=== PATIENT | male | born 2000 | race Caucasian/White ===

== ENCOUNTER 2024-04-06 15:37 | Outpatient (AMB) | payer BC, SELFPAY ==
--- NOTE | 2024-04-06 15:45 | MHC.PC.OV ---
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 Allergies amoxicillin [From Augmentin] Allergy (Unknown, Verified 04/06/24 15:47) Unknown clavulanic acid [From Augmentin] Allergy (Unknown, Verified 04/06/24 15:47) Unknown Medication List - Last Reconciled 04/06/24 by Cate Mullins MD No Known Home Meds Tobacco use date assessed: 04/06/24 Dental Screening Dental Screen Date: 04/06/24 Did you have a dental visit in the last 12 months?: Yes Did you have a dental problem in the last 6 months where you did not have access to dental care?: No Was dental information given to patient?: Patient has dentist HPI HPI Comments History of Present Illness Details The patient is a 24 year old male with a past medical history of back pain presenting to [facility]. 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 Started to experience thoracic back pain. Finished school, started working-9 hours a day. Using sit stand ergonomic chair. Went to chiro, PT, saw orthopedic surgery. Orthopedic surgery-[facility] [place]. Had xrays. Sent for MRI. Referred to pain management. Started trigger point injections, acupuncture. STD from work ~3 months. Went back to work. Still having pain. Repeated PT. Tried second chiropractor. Referred to physiatry/pain management-this was in [facility]. Placed on muscle relaxants. Slight relief with muscle relaxants. Discussed with him there was some improvement with muscle relaxants, didnt hear further. Nayana Appiah, specialty PT in [place] on one hour session. Last six weeks. She referred him to stem cell unit. He continues to have difficulty sitting or standing for long periods of time. It is hard for him to get through his days of work due to pain levels ROS see HPI PHYSICAL EXAM: GENERAL: Alert and oriented x 3. NAD EYES: EOMI. Anicteric. HENT: Moist mucous membranes. No scleral icterus. No cervical lymphadenopathy. LUNGS: Clear to auscultation bilaterally. CARDIOVASCULAR: Regular rate and rhythm. No murmur. No JVD. MSK: Mild thoracic paraspinal muscle spasm. Slight prominence of right scapula. Pain to palpation under the right scapula ABDOMEN: Soft, non-tender +bs EXTREMITIES: No edema. Non-tender. SKIN: No rashes or lesions. Warm. NEUROLOGIC: No focal neurological deficits. CN II-XII grossly intact PSYCHIATRIC: Cooperative. 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 1. Little interest or pleasure in doing things: more than half the days 2. Feeling down, depressed, or hopeless: nearly every day 3. Trouble falling or staying asleep, or sleeping too much: not at all 4. Feeling tired or having little energy: several days 5. Poor appetite or overeating: not at all 6. Feeling bad about yourself - or that you are a failure or have let yourself or your family down: not at all 7. Trouble concentrating on things, such as reading the newspaper or watching television: not at all 8. Moving or speaking so slowly that other people could have noticed. Or the opposite - being so fidgety or restless that you have been moving around a lot more than usual: not at all 9. Thoughts that you would be better off or of hurting yourself in some way: not at all Total score: 6 Depression Screening Interpretation: Positive Depression Screening Follow-up: Declines treatment Depression Screening Done: Yes 39021 - PHQ-9 Billing: Yes Source: Developed by Drs. Ambrocio Fuentes, Hetal Lang, Steve Lobato and colleagues, with an educational johanny from [employer]. Thrive Questionnaire Date Thrive assessed: 04/07/24 I am a: Patient What is your living situation today?: I have a steady place to live Within the past 12 months, did the food you bought not last and you didn't have the money to get more?: Never true Within the past 12 months, did you worry whether your food would run out before you got money to buy more?: Never true Do you have trouble paying for medicines?: No Do you have trouble getting transportation to medical appointments?: No Do you have trouble paying your heating and electricity bill?: No Do you have trouble taking care of your child, family member or friend?: No Do you have trouble with day-to-day activities such as bathing, preparing meals, shopping, managing finances, etc.?: No Are you currently unemployed and looking for a job?: No Are you interested in more education?: Yes Please select the resources that you would like help with: Education Currently or been in a relationship where the following occur: no concerns reported THRIVE Score: 0 AUDIT C Alcohol Use Questionnaire (AUDIT-C) 1. How often do you have a drink containing alcohol?: Never 3. How often do you have six or more drinks on one occasion?: Never Total Score: 0 AAVNI-7 AMB Questionnaire AVANI-7 Date AVANI - 7 assessed: 04/07/24 Feeling nervous, anxious, or on edge: 1 = Several days Not being able to stop or control worryin = Several days Worrying too much about different things: 1 = Several days Trouble relaxin = Several days Being so restless that it is hard to sit still: 0 = Not at all Becoming easily annoyed or irritable: 1 = Several days Feeling afraid as if something awful might happen: 0 = Not at all Total AVANI-7 score (0-4 normal; 5-9 mild; 10-14 moderate; 15-21 severe): 5 Source: Developed by Drs. Ambrocio Fuentes, Hetal Lang, Steve Lobato and colleagues, with an educational johanny from [employer]. AVANI-7 Assessment Billing AVANI-7 Assessment Tool: AVANI-7 Assessment 33922 Physical exam (Primary Care) Vital Signs: Last Vital Signs Temp 97.4 F 04/06/24 15:50 Pulse 81 04/06/24 15:50 Resp 16 04/06/24 15:50 BP 122/84 04/06/24 15:50 Pulse Ox 97 04/06/24 15:50 Oxygen Delivery Method Room Air 04/06/24 15:50 BMI result Body Mass Index 26.4 Tobacco/Smoking Status: Tobacco use Status Tobacco use date assessed 04/06/24 04/06/24 15:53 Patient Tobacco Use Status Never used Tobacco 04/06/24 15:53 e-Cigarette/Vaping Use Never Used 04/06/24 15:53 PHQ-9: PHQ-9 Score PHQ-9: Total score 6 04/07/24 15:50 Depression Screening Interpretation: Positive Depression Screening Follow-up: Declines treatment Thrive Assessment: Date of Thrive Assessment Date Thrive assessed 04/07/24 04/07/24 15:50 Currently or been in a relationship where the following occur: no concerns reported Assessment and Plan Assessment & Plan (1) Encounter to establish care: Comment: 24 y/o to establish care. past medical, surgical, social and family history reviewed. Chronic thoracic back pain. Will have him see physiatry, perhaps EMG. Labs ordered. Code(s): Z76.89 - Persons encountering health services in other specified circumstances (2) Chronic right-sided thoracic back pain: Code(s): M54.6 - Pain in thoracic spine; G89.29 - Other chronic pain (3) Lumbar pain: Code(s): M54.50 - Low back pain, unspecified Orders: Orders Complete Blood Count Auto Diff 04/07/24 G89.29 - Other chronic pain, M54.50 - Low back pain, unspecified, M54.6 - Pain in thoracic spine Erythrocyte Sedimentation Rate 04/07/24 G89.29 - Other chronic pain, M54.50 - Low back pain, unspecified, M54.6 - Pain in thoracic spine Babesia IgG/IgM 04/07/24 G89.29 - Other chronic pain, M54.50 - Low back pain, unspecified, M54.6 - Pain in thoracic spine CRP High Sensitivity 04/07/24 G89.29 - Other chronic pain, M54.50 - Low back pain, unspecified, M54.6 - Pain in thoracic spine MR thoracic spine wo con 04/06/24 G89.29 - Other chronic pain, M54.50 - Low back pain, unspecified, M54.6 - Pain in thoracic spine Comprehensive Met. Panel 04/07/24 G89.29 - Other chronic pain, M54.50 - Low back pain, unspecified, M54.6 - Pain in thoracic spine Lyme IgG/IgM w/reflex to WB 04/07/24 G89. - Other chronic pain, M54.50 - Low back pain, unspecified, M54.6 - Pain in thoracic spine Ehrlichia Anaplasma Ab Panel 04/07/24. - Other chronic pain, M54.50 - Low back pain, unspecified, M54.6 - Pain in thoracic spine Rheumatoid Factor 04/07/2489. - Other chronic pain, M54.50 - Low back pain, unspecified, M54.6 - Pain in thoracic spine Referrals Physiatry Referral G. - Other chronic pain, M54.50 - Low back pain, unspecified, M54.6 - Pain in thoracic spine Coding Level of Care Code New Pt Level 5 (28503) Diagnoses Encounter to establish care Z76.89 Chronic right-sided thoracic back pain M54.6; G. Lumbar pain M54.50 Additional Codes AVANI-7 Assessment Billing - AVANI-7 Assessment Tool: AVANI-7 Assessment 04662 ([id number]) Time Spent (min) 65
[2024-04-06 15:50] VITALS: BP 122/84; PULSE 81; RESP 16; TEMP 36.3; O2SAT 97; BMI 26.4
== END 2024-04-06 16:42 | disposition home or self-care (01) ==
PROVIDERS: Visit Provider Internal Medicine
DX: M54.6 Pain in thoracic spine (principal); Z76.89 Persons encountering health services in other specified circumstances; G89.29 Other chronic pain; M54.50 Low back pain, unspecified
CPT/HCPCS: 99205

== ENCOUNTER 2024-04-07 08:20 | Outpatient (REF) | payer BC, SELFPAY ==
[2024-04-07 11:32] LABS: MANUAL DIFF FLAG NO
[2024-04-07 11:42] LABS: Basophils Absolute Auto 0.1 X10*3/uL (0.0-0.2); Eosinophils Absolute Auto 0.2 X10*3/uL (0.0-0.4); Eosinophils Percent Auto 3.4 % (0-4); Hematocrit 46.3 % (42.0-52.0); Imm Gran Abs Auto 0.02 X10*3/uL (0.00-0.03); Imm Gran Pct Auto 0.3 % (0.0-0.4); Lymphocytes Absolute Auto 2.8 X10*3/uL (1.2-4.9); Mean Corpuscular HGB Conc 34.6 g/dl (31.0-36.0); Mean Corpuscular Hemoglobin 30.9 pg (27.0-33.0); Mean Corpuscular Volume 89.6 fL (80.0-98.0); Mean Platelet Volume 10.5 fL (9.4-12.4); Monocytes Absolute Auto 0.5 X10*3/uL (0.1-1.2); Monocytes Percent Auto 7.4 % (2-11); Neutrophils Absolute Auto 2.7 x10*3/uL (2.0-8.3); Neutrophils Percent Auto 42.9 % (45-73); Platelet Count 199 X10*3/uL (160-400); Red Blood Count 5.17 X10*6/uL (4.60-5.80); Red Cell Distribution Width 12.8 % (11.0-16.0); White Blood Count 6.2 X10*3/uL (4.8-10.8)
[2024-04-07 12:07] LABS: Alanine Aminotransferase 17 U/L (0-40); Albumin Level 4.9 g/dL (3.5-5.0); Alkaline Phosphatase 75 U/L (39-117); Anion Gap 12 (12-20); Aspartate Amino Transferase 18 U/L (5-37); Bilirubin Total 0.6 mg/dL (0.0-1.0); Blood Urea Nitrogen 12 mg/dL (9-16); Calcium 10.2 mg/dL (8.4-10.2); Carbon Dioxide 26 mmol/L (22-29); Chloride 105 mmol/L (96-108); Estimated Glomerular Filt Rate > 60; Glucose Random 118 mg/dL (60-115); Potassium 3.7 mmol/L (3.3-5.1); Sodium 139 mmol/L (135-145); Total Protein 7.7 g/dL (6.5-8.0)
[2024-04-07 12:11] LABS: Rheumatoid Factor < 13.0 IU/mL (<15.0)
[2024-04-07 12:39] LABS: Erythrocyte Sedimentation Rate 1 MM/HR (0-15)
[2024-04-09 00:48] LABS: CRP High Sensitivity 0.3 mg/L
[2024-04-09 03:13] LABS: Lyme Blot 1.49 index
[2024-04-09 10:37] LABS: Lyme Abs Screen POSITIVE
[2024-04-12 15:38] LABS: 18 KD (IgG) Band REACTIVE; 23 KD (IgG) Band REACTIVE; 23 KD (IgM) Band REACTIVE; 28 KD (IgG) Band NON-REACTIVE; 30 KD (IgG) Band NON-REACTIVE; 39 KD (IgM) Band NON-REACTIVE; 39KD (IgG) Band REACTIVE; 41 KD (IgM) Band NON-REACTIVE; 41KD (IgG) Band REACTIVE; 45 KD (IgG) Band NON-REACTIVE; 58 KD (IgG) Band NON-REACTIVE; 66 KD (IgG) Band NON-REACTIVE; 93 KD (IgG) Band NON-REACTIVE; Lyme IgG Blot Interp NEGATIVE (NEGATIVE); Lyme IgM Blot Interp NEGATIVE (NEGATIVE)
[2024-04-18 12:12] LABS: A. Phagocytophilum Ab IgG <1:64 (<1:64); A. Phagocytophilum Ab IgM <1:20 (<1:20); E. Chaffeensis Ab IgG <1:64 (<1:64); E. Chaffeensis Ab IgM <1:20 (<1:20)
[2024-04-18 12:49] LABS: Babesia IgG <1:64 titer (<1:64); Babesia IgM <1:20 titer (<1:20)
== END 2024-04-07 08:21 | disposition home or self-care (01) ==
LOC: HO.WFDLDS 08:20
PROVIDERS: Visit Provider Internal Medicine
DX: M54.50 Low back pain, unspecified (principal); M54.6 Pain in thoracic spine; G89.29 Other chronic pain
CPT/HCPCS: 36415; 80053; 85025; 85652; 86141; 86431; 86617; 86618; 86666; 86753

== ENCOUNTER 2024-05-13 10:14 | Outpatient (REF) | payer BC, SELFPAY ==
--- NOTE | ~2024-05-13 | XR_ITS ---
EXAMINATION: XR THORACOLUMBAR SPINE CLINICAL INFORMATION: Dorsalgia COMPARISON: None available. TECHNIQUE: 3 views of thoracic spine FINDINGS: The vertebral alignment is normal. No intrinsic bony abnormality. The disc heights and neural foramina are well maintained. The endplates and posterior elements are normal. No fracture or subluxation. The surrounding prevertebral soft tissues are unremarkable. XR/XR thoracic spine 2V IMPRESSION: No compression fractures or subluxations are identified. The disc spaces are preserved. No endplate changes are seen. The prevertebral soft tissues are normal. The foramina are patent.
--- NOTE | ~2024-05-13 | XR_ITS ---
EXAMINATION: XR CERVICAL SPINE CLINICAL INFORMATION: Cervicalgia COMPARISON: None TECHNIQUE: 3 views of the cervical spine were obtained. FINDINGS: There are no prevertebral soft tissue or bony abnormalities demonstrated. No compression fractures or subluxations are identified. Alignment is maintained at the atlanto-axial articulation. The disc spaces are preserved except of narrowing cough C7-T1 intervertebral disc space. No endplate changes are seen. The prevertebral soft tissues are normal. The foramina are patent. XR/XR cervical spine 3V IMPRESSION: Degenerative changes at the level of C7-T1
== END 2024-05-13 10:15 | disposition home or self-care (01) ==
LOC: HO.HOSX 10:14
PROVIDERS: Visit Provider Physical Medicine & Rehabilitation
DX: M54.2 Cervicalgia (principal); M79.18 Myalgia, other site; M54.6 Pain in thoracic spine; G89.29 Other chronic pain
CPT/HCPCS: 72040; 72070

== ENCOUNTER 2024-05-13 10:14 | Outpatient (AMB) | payer BC, SELFPAY ==
--- NOTE | 2024-05-13 10:19 | MHC.OFFVIS ---
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 His pain originally started by long periods of sitting. His upper back pain is not radiating to the lower back. In the morning he feels significant stiffness, and the pain is explained as soreness. These symptoms are exacerbated with desk work and driving. Denies numbness and tingling. He has subtle muscles spasms. He has been treated for Lyme disease, has taken Doxycycline for this that has been finished for about 1 week. He will be getting an MRI of the spine booked here at [facility]. he has tried Chiropractics, Trigger point injections of the right upper back, acupuncture. 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 He has tried and failed Ibuprofen 800mg. He has tried muscle relaxers which were only mildly helpful. 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 Started to experience thoracic back pain. Finished school, started working-9 hours a day. Using sit stand ergonomic chair. Went to chiro, PT, saw orthopedic surgery. Orthopedic surgery-[facility] [place]. Had xrays. Sent for MRI. Referred to pain management. Started trigger point injections, acupuncture. STD from work ~3 months. Went back to work. Still having pain. Repeated PT. Tried second chiropractor. Referred to physiatry/pain management-this was in [facility]. Placed on muscle relaxants. Slight relief with muscle relaxants. Discussed with him there was some improvement with muscle relaxants, didnt hear further. Nayana Appiah, specialty PT in [place] on one hour session. Last six weeks. She referred him to stem cell unit. He continues to have difficulty sitting or standing for long periods of time. It is hard for him to get through his days of work due to pain levels. He confirms that he had MRI thoracic spine, 2022. He brings CD. He is scheduled end of April here for TS MRI as well, in [facility]. Trigger point injections upper back right side - zero relief. But only done once back then 2022. PT at [place] - not helping. He exercises - cardio, PT routines, up to 15 lbs upper body. Points to right rhomboids primariy, right worse then left. Does not radiate to arms. No numbness or weakness on legs. Posterior neck soreness and tension, especially with laying down and posture. No associated headache. Then points to SI joint area as being irritated just recently from PT exercises he's been doing. Played soccer and skate boarding. Has had injuries with skating in the past. He actually was feeling his best from to college with being physically fit; but once in college, became more sedentary, that he started having the pain. History of chika schlatter. Non smoker. On STD. 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 Sitting for total 4 1/2 hours, in a 9 hour day. Labs ordered by PCP. Positive Lyme, treated with antibiotics. ESR and RF normal. Not anemic. 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 Patient was appropriately conversant and oriented. Good historian. MSK: Inspection reveals appropriate head and neck positioning. No pain with palpation over the neck musculature. No tenderness over thoracic area. Some tightness and tenderness noted on right upper trapezius and right rhomboids. No scapular winging. Cervical ROM was full. Spurling's sign negative. Bilateral shoulder, elbow and wrist ROM WNL. No ligamentous laxity or crepitance. No increased effusion. Negative Tompkins sign, empty can sign are speed's test. No specific abnormalities or instability found on inspection and palpation of the spine and extremities. Strength is 5/5 in all muscle groups tested. No increased tone noted. Neurological: Neurologic examination of the upper and lower extremities was nonfocal with intact sensation, muscle stretch reflexes and without focal motor deficits . Madrigal?s negative bilaterally. Babinski was down going bilaterally. Clonus was negative. Gait is non-antalgic without loss of balance. Results Reviewed Results Reviewed: I independently reviewed the results of the following: CDs of MRI would be uploaded. I reviewed records from the following: Reviewed notes from PCP Assessment & Plan Assessment & Plan (1) Upper back pain: Code(s): M54.9 - Dorsalgia, unspecified (2) Myofascial pain: Code(s): M79.18 - Myalgia, other site Category: Medical (3) Chronic right-sided thoracic back pain: Code(s): M54.6 - Pain in thoracic spine; G89.29 - Other chronic pain Category: Medical Plan Chronic right-sided upper back pain that really is exacerbated with posture in sitting. Suggestive that this is myofascial. No signs or symptoms of radiculopathy or myelopathy. Since he has gone through different specialties and treatments without much relief yet, I would like to take some time to evaluate the workup before formulating further treatment plan. He is already scheduled for thoracic MRI at end of April here at [facility]. We will request that the CDs he brought in be uploaded to our system so we may compare. Checking cervical and thoracic plain x-rays today. He requested that I fill up a form for short-term disability. It would most likely say that we are waiting for further workup. Assessment and plan discussed with patient, and patient was agreeable. All questions were answered thoroughly. Follow up after MRI. Dina Tse MD, POONAM Board Certified, [place] Board [employer] Physical Medicine and Rehabilitation (ABPMR) Board Certified, [place] Board of Electrodiagnostic Medicine (ABEM) Orders: Orders XR thoracic spine 2V Today M54.9 - Dorsalgia, unspecified XR cervical spine 3V Today M54.2 - Cervicalgia Coding Level of Care Code New Pt Level 4 (47614) Diagnoses Upper back pain M54.9 Myofascial pain M79.18 Chronic right-sided thoracic back pain M54.6; G89.29
== END 2024-05-13 11:13 | disposition home or self-care (01) ==
PROVIDERS: Visit Provider Physical Medicine & Rehabilitation
DX: M54.9 Dorsalgia, unspecified (principal); M79.18 Myalgia, other site; M54.6 Pain in thoracic spine; G89.29 Other chronic pain
CPT/HCPCS: 99203

== ENCOUNTER 2024-05-24 16:26 | Outpatient (REF) | payer BC, SELFPAY ==
--- NOTE | ~2024-05-24 | MR_ITS ---
MR THORACIC SPINE WITHOUT CONTRAST CLINICAL INFORMATION: Pain in the thoracic spine. COMPARISON: Thoracic spine MRI October 23, 2022. TECHNIQUE: MRI of the thoracic spine was obtained using routine sequences without contrast. FINDINGS: There are 12 rib bearing thoracic type vertebral bodies. The vertebral body heights are overall maintained. Small chronic endplate along the lower endplate of T11. There are mild Modic type I endplate signal changes at T11-T12. There is no additional bone marrow edema. There are no acute fractures. Moderate discoid loss and disc desiccation at T11-T12. The remaining disc volumes are preserved and the remaining discs remain well-hydrated. Thoracic cord morphology is normal and there are no definite thoracic cord signal changes when accounting for artifact. At T11-T12, there is a slight annular disc bulge that minimally indents the ventral thecal sac. The remaining thoracic disc contours are normal. There is no central canal stenosis within the thoracic spine. At T4-T5, advanced right-sided facet arthropathy results in moderate right-sided foraminal stenosis. No additional significant foraminal stenosis with thoracic spine. MR/MR thoracic spine wo con IMPRESSION: * At T11-T12, there is a slight annular disc bulge that minimally indents the ventral thecal sac. The remaining thoracic disc contours are normal. No significant central canal stenosis within the thoracic spine. No thoracic cord compression. * At T4-T5, advanced right-sided facet arthropathy results in moderate right-sided foraminal stenosis. * Small chronic lower endplate Schmorl's node at T11 and mild Modic type I endplate changes at T11-T12. Electronically signed by: Bhaskar Ruvalcaba MD 06/22/2024 03:01 PM EDT
== END 2024-05-24 16:27 | disposition home or self-care (01) ==
LOC: HO.MRI 16:26
PROVIDERS: PCP Internal Medicine; Visit Provider Internal Medicine
DX: M54.6 Pain in thoracic spine (principal); M54.50 Low back pain, unspecified; G89.29 Other chronic pain
CPT/HCPCS: 72146

== ENCOUNTER 2024-06-24 09:09 | Outpatient (AMB) | payer BC, SELFPAY ==
--- NOTE | 2024-06-24 09:10 | A.OFFVIS_ITS ---
Vital Signs 06/24/24 09:11 Height 6 ft 0.04 in Weight 190 lb 4 oz BMI 25.8 Intake Visit Reasons: OV-chronic low back pain-F/U Intake Note: Jn is a 24 year old male who presents to the office today for a follow up evaluation of chronic low back pain and to discuss imaging results. Patient reports no new concerns today. 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 Started to experience thoracic back pain. Finished school, started working-9 hours a day. Using sit stand ergonomic chair. Went to chiro, PT, saw orthopedic surgery. Orthopedic surgery-[facility] [place]. Had xrays. Sent for MRI. Referred to pain management. Started trigger point injections, acupuncture. STD from work ~3 months. Went back to work. Still having pain. Repeated PT. Tried second chiropractor. Referred to physiatry/pain management-this was in [facility]. Placed on muscle relaxants. Slight relief with muscle relaxants. Discussed with him there was some improvement with muscle relaxants, didnt hear further. Nayana Appiah, specialty PT in [place]-one on one hour session. Last six weeks. She referred him to stem cell unit. He continues to have difficulty sitting or standing for long periods of time. It is hard for him to get through his days of work due to pain levels. He confirms that he had MRI thoracic spine, 2022. He brings CD. He is scheduled end of April here for TS MRI as well, in [facility]. Trigger point injections upper back right side - zero relief. But only done once back then 2022. PT at [place] - not helping. He exercises - cardio, PT routines, up to 15 lbs upper body. Points to right rhomboids primariy, right worse then left. Does not radiate to arms. No numbness or weakness on legs. Posterior neck soreness and tension, especially with laying down and posture. No associated headache. Then points to SI joint area as being irritated just recently from PT exercises he's been doing. Played soccer and skate boarding. Has had injuries with skating in the past. He actually was feeling his best from to college with being physically fit; but once in college, became more sedentary, that he started having the pain. History of chika schlatter. Non smoker. On STD. 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 Sitting for to sita 4 1/2 hours, in a 9 hour day. Labs ordered by PCP. Positive Lyme, treated with antibiotics. ESR and RF normal. Not anemic. No change since last time I saw him. Indicates to areas of pain, medial rhomboids and below scapula, right side. Denies any radiation down the right arm. Denies any numbness in his fingers. 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 Patient was appropriately conversant and oriented. Good historian. Neurological: Neurologic examination of the upper and lower extremities was nonfocal with intact sensation, muscle stretch reflexes and without focal motor deficits . Madrigal?s negative bilaterally. Babinski was down going bilaterally. Clonus was negative. Gait is non-antalgic without loss of balance. Negative Spurling sign. Results Reviewed Results Reviewed: Ordering Physician: Dina Hillman Date of Service: 05/13/24 Procedure(s): XR thoracic spine 2V Accession Number(s): [id number] cc: Dina Hillman~ EXAMINATION: XR THORACOLUMBAR SPINE CLINICAL INFORMATION: Dorsalgia COMPARISON: None available. TECHNIQUE: 3 views of thoracic spine FINDINGS: The vertebral alignment is normal. No intrinsic bony abnormality. The disc heights and neural foramina are well maintained. The endplates and posterior elements are normal. No fracture or subluxation. The surrounding prevertebral soft tissues are unremarkable. XR/XR thoracic spine 2V IMPRESSION: No compression fractures or subluxations are identified. The disc spaces are preserved. No endplate changes are seen. The prevertebral soft tissues are normal. The foramina are patent. Ordering Physician: Dina Hillman Date of Service: 05/13/24 Procedure(s): XR cervical spine 3V Accession Number(s): [id number] cc: Dina Hillman~ EXAMINATION: XR CERVICAL SPINE CLINICAL INFORMATION: Cervicalgia COMPARISON: None TECHNIQUE: 3 views of the cervical spine were obtained. FINDINGS: There are no prevertebral soft tissue or bony abnormalities demonstrated. No compression fractures or subluxations are identified. Alignment is maintained at the atlanto-axial articulation. The disc spaces are preserved except of narrowing cough C7-T1 intervertebral disc space. No endplate changes are seen. The prevertebral soft tissues are normal. The foramina are patent. XR/XR cervical spine 3V IMPRESSION: Degenerative changes at the level of C7-T1 Ordering Physician: Cate Mullins MD Date of Service: 05/24/24 Procedure(s): MR thoracic spine wo con Accession Number(s): [id number] cc: Cate Mullins MD~ MR THORACIC SPINE WITHOUT CONTRAST CLINICAL INFORMATION: Pain in the thoracic spine. COMPARISON: Thoracic spine MRI October 23, 2022. TECHNIQUE: MRI of the thoracic spine was obtained using routine sequences without contrast. FINDINGS: There are 12 rib bearing thoracic type vertebral bodies. The vertebral body heights are overall maintained. Small chronic endplate along the lower endplate of T11. There are mild Modic type I endplate signal changes at T11-T12. There is no additional bone marrow edema. There are no acute fractures. Moderate discoid loss and disc desiccation at T11-T12. The remaining disc volumes are preserved and the remaining discs remain well-hydrated. Thoracic cord morphology is normal and there are no definite thoracic cord signal changes when accounting for artifact. At T11-T12, there is a slight annular disc bulge that minimally indents the ventral thecal sac. The remaining thoracic disc contours are normal. There is no central canal stenosis within the thoracic spine. At T4-T5, advanced right-sided facet arthropathy results in moderate right-sided foraminal stenosis. No additional significant foraminal stenosis with thoracic spine. MR/MR thoracic spine wo con IMPRESSION: * At T11-T12, there is a slight annular disc bulge that minimally indents the ventral thecal sac. The remaining thoracic disc contours are normal. No significant central canal stenosis within the thoracic spine. No thoracic cord compression. * At T4-T5, advanced right-sided facet arthropathy results in moderate right-sided foraminal stenosis. * Small chronic lower endplate Schmorl's node at T11 and mild Modic type I endplate changes at T11-T12. Electronically signed by: Bhaskar Ruvalcaba MD 06/22/2024 03:01 PM EDT RP Assessment & Plan Assessment & Plan (1) Upper back pain: Code(s): M54.9 - Dorsalgia, unspecified (2) Myofascial pain: Code(s): M79.18 - Myalgia, other site Category: Medical (3) Chronic right-sided thoracic back pain: Code(s): M54.6 - Pain in thoracic spine; G89.29 - Other chronic pain Category: Medical Plan Chronic right-sided upper back pain, mainly rhomboids, that I feel is myofascial, associated with poor posture. We went over thoracic MRI images which does not show any significant nerve or cord impingement to explain his symptoms. We looked at cervical x-ray which did show loss of lordosis, consistent with myofascial. It also showed decreased disc space C7-T1. I do believe that his chronic pain is myofascial in nature. That it could be corrected, with lifestyle changes, posture changes, continued exercises and stretching. However, to not miss anything, we will obtain cervical MRI to investigate if there is any right-sided C7-T1 foraminal stenosis or disc herniation. Lower suspicion for this but we do not want to miss anything. Discussed option of continued PT and trigger point injections versus referral to pain management for further intervention. At such a young age, I am concerned of starting him on a series of interventions that will not help correct the bottom line which is myofascial and postural. Patient verbalizes understanding and agreement. Continue home exercises for now. He can use [id number] Voltaren gel. Discussed side instructions. Advised use of shoulder posture correction brace. Assessment and plan discussed with patient, and patient was agreeable. All questions were answered thoroughly. Follow up after MRI. Dina Tse MD, POONAM Board Certified, [place] Board [employer] Physical Medicine and Rehabilitation (ABPMR) Board Certified, [place] Board of Electrodiagnostic Medicine (ABEM) Orders: Orders MR cervical spine wo con Today M54.12 - Radiculopathy, cervical region Coding Level of Care Code Est Pt Level 4 (03691) Diagnoses Upper back pain M54.9 Myofascial pain M79.18 Chronic right-sided thoracic back pain M54.6; G89.29
[2024-06-24 09:11] VITALS: BMI 25.8
== END 2024-06-24 09:47 | disposition home or self-care (01) ==
PROVIDERS: PCP Internal Medicine; Visit Provider Physical Medicine & Rehabilitation
DX: M54.9 Dorsalgia, unspecified (principal); M79.18 Myalgia, other site; M54.6 Pain in thoracic spine; G89.29 Other chronic pain
CPT/HCPCS: 99213

== ENCOUNTER → 2024-06-24 09:09 | Outpatient (BNVA) | payer BC, SELFPAY | PROVIDERS: PCP Internal Medicine; Visit Provider Physical Medicine & Rehabilitation ==

== ENCOUNTER 2024-07-24 19:27 | Outpatient (REF) | payer BC, SELFPAY ==
--- NOTE | ~2024-07-24 | MR_ITS ---
EXAMINATION: MR CERVICAL SPINE WITHOUT CONTRAST CLINICAL INFORMATION: Cervical radiculopathy, right-sided C7-T1 disc herniation COMPARISON: MRI cervical spine on 10/15/2022 at [facility], cervical spine x-ray on 05/13/2024. TECHNIQUE: MRI of the cervical spine was obtained using routine sequences without contrast. FINDINGS: The visualized cervical vertebrae are intact with normal alignment. No focal bone lesion with abnormal signal can be seen. Evaluation of the intervertebral discs show: C2/C3: Intervertebral disc height is normal, with normal T2 signal. No focal disc herniation is seen. Bilateral C2-C3 neural foramina are patent. Bilateral apophyseal joints are intact with normal alignment. C3/C4: Intervertebral disc height is normal, with normal T2 signal. No focal disc herniation is seen. Bilateral C3-C4 neural foramina are patent. Bilateral apophyseal joints are intact with normal alignment. C4/C5: Intervertebral disc height is normal, with normal T2 signal. No focal disc herniation is seen. Bilateral C4-C5 neural foramina are patent. Bilateral apophyseal joints are intact with normal alignment. C5/C6: Intervertebral disc height is normal, with normal T2 signal. No focal disc herniation is seen. Bilateral C5-C6 neural foramina are patent. Bilateral apophyseal joints are intact with normal alignment. C6/C7: Intervertebral disc height is normal, with normal T2 signal. No focal disc herniation is seen. Bilateral C6-C7 neural foramina are patent. Bilateral apophyseal joints are intact with normal alignment. C7/T1: Intervertebral disc height is normal, with normal T2 signal. No focal disc herniation is seen. Bilateral C7-T1 neural foramina are patent. Bilateral apophyseal joints are intact with normal alignment. Cervical spinal cord is normal in position and signal. MR/MR cervical spine wo con IMPRESSION: 1. Normal MRI scan of the cervical spine. No focal cervical disc herniation, spinal stenosis, spinal cord or nerve root compression can be seen. 2. No evidence of C7-T1 disc herniation, no interval change since previous MRI. Electronically signed by: Milind Hyde MD 08/25/2024 02:18 PM EDT
== END 2024-07-24 19:28 | disposition home or self-care (01) ==
LOC: HO.MRI 19:27
PROVIDERS: PCP Internal Medicine; Visit Provider Physical Medicine & Rehabilitation
DX: M54.12 Radiculopathy, cervical region (principal)
CPT/HCPCS: 72141

== ENCOUNTER 2024-08-27 11:41 | Outpatient (AMB) | payer BC, SELFPAY ==
--- NOTE | 2024-08-27 11:46 | A.OFFVIS_ITS ---
Vital Signs 08/27/24 11:48 Height 6 ft 2 in Weight 190 lb BMI 24.4 Intake Visit Reasons: OV- Cervical Spine MRI Follow Up Intake Note: Jn is a 24 yo male who presents today to discuss his cervical spine MRI results. Patient reports no updates to his health at this time. 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 Started to experience thoracic back pain. Finished school, started working-9 hours a day. Using sit stand ergonomic chair. Went to chiro, PT, saw orthopedic surgery. Orthopedic surgery-Sports Medicine [place]. Had xrays. Sent for MRI. Referred to pain management. Started trigger point injections, acupuncture. STD from work ~3 months. Went back to work. Still having pain. Repeated PT. Tried second chiropractor. Referred to physiatry/pain management-this was in [facility]. Placed on muscle relaxants. Slight relief with muscle relaxants. Discussed with him there was some improvement with muscle relaxants, didnt hear further. Nayana Appiah, specialty PT in [place]-one on one hour session. Last six weeks. She referred him to stem cell unit. He continues to have difficulty sitting or standing for long periods of time. It is hard for him to get through his days of work due to pain levels. He confirms that he had MRI thoracic spine, 2022. He brings CD. He is scheduled end of April here for TS MRI as well, in [facility]. Trigger point injections upper back right side - zero relief. But only done once back then 2022. PT at [place] - not helping. He exercises - cardio, PT routines, up to 15 lbs upper body. Points to right rhomboids primariy, right worse then left. Does not radiate to arms. No numbness or weakness on legs. Posterior neck soreness and tension, especially with laying down and posture. No associated headache. Then points to SI joint area as being irritated just recently from PT exercises he's been doing. Played soccer and skate boarding. Has had injuries with skating in the past. He actually was feeling his best from HS to college with being physically fit; but once in college, became more sedentary, that he started having the pain. History of chika schlatter. Non smoker. On STD. 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 Sitting for total 4 1/2 hours, in a 9 hour day. Labs ordered by PCP. Positive Lyme, treated with antibiotics. ESR and RF normal. Not anemic. Feels that he is gaining some strength from PT. Works out. Still having pain on rhomboids bilateral. Had a flare from lower back pain. Goal of his exercise program that slow progressive and not exacerbate. 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 Patient was appropriately conversant and oriented. Good historian. MSK: Cervical ROM within normal. Negative Spurling sign. Negative hawkin sign bilateral. Neurological: Neurologic examination of the upper and lower extremities was nonfocal with intact sensation, muscle stretch reflexes and without focal motor deficits . Madrigal?s negative bilaterally. Clonus was negative. Gait is non-antalgic without loss of balance. Results Reviewed Results Reviewed: Ordering Physician: Dina Hillman Date of Service: 07/24/24 Procedure(s): MR cervical spine wo con Accession Number(s): [id number] cc: Cate Mullins MD; Dina Hillman~ EXAMINATION: MR CERVICAL SPINE WITHOUT CONTRAST CLINICAL INFORMATION: Cervical radiculopathy, right-sided C7-T1 disc herniation COMPARISON: MRI cervical spine on 10/15/2022 at [facility], cervical spine x-ray on 05/13/2024. TECHNIQUE: MRI of the cervical spine was obtained using routine sequences without contrast. FINDINGS: The visualized cervical vertebrae are intact with normal alignment. No focal bone lesion with abnormal signal can be seen. Evaluation of the intervertebral discs show: C2/C3: Intervertebral disc height is normal, with normal T2 signal. No focal disc herniation is seen. Bilateral C2-C3 neural foramina are patent. Bilateral apophyseal joints are intact with normal alignment. C3/C4: Intervertebral disc height is normal, with normal T2 signal. No focal disc herniation is seen. Bilateral C3-C4 neural foramina are patent. Bilateral apophyseal joints are intact with normal alignment. C4/C5: Intervertebral disc height is normal, with normal T2 signal. No focal disc herniation is seen. Bilateral C4-C5 neural foramina are patent. Bilateral apophyseal joints are intact with normal alignment. C5/C6: Intervertebral disc height is normal, with normal T2 signal. No focal disc herniation is seen. Bilateral C5-C6 neural foramina are patent. Bilateral apophyseal joints are intact with normal alignment. C6/C7: Intervertebral disc height is normal, with normal T2 signal. No focal disc herniation is seen. Bilateral C6-C7 neural foramina are patent. Bilateral apophyseal joints are intact with normal alignment. C7/T1: Intervertebral disc height is normal, with normal T2 signal. No focal disc herniation is seen. Bilateral C7-T1 neural foramina are patent. Bilateral apophyseal joints are intact with normal alignment. Cervical spinal cord is normal in position and signal. MR/MR cervical spine wo con IMPRESSION: 1. Normal MRI scan of the cervical spine. No focal cervical disc herniation, spinal stenosis, spinal cord or nerve root compression can be seen. 2. No evidence of C7-T1 disc herniation, no interval change since previous MRI. Assessment & Plan Assessment & Plan (1) Upper back pain: Code(s): M54.9 - Dorsalgia, unspecified (2) Myofascial pain: Code(s): M79.18 - Myalgia, other site Category: Medical (3) Chronic right-sided thoracic back pain: Code(s): M54.6 - Pain in thoracic spine; G89.29 - Other chronic pain Category: Medical Plan Chronic right-sided upper back pain, mainly rhomboids, that I feel is my ofascial, associated with poor posture. Thoracic MRI images does not show any significant nerve or cord impingement to explain his symptoms. Cervical x-ray did show loss of lordosis, consistent with myofascial. It also showed decreased disc space C7-T1. So we obtained Cervical MRI, which was read as essentially normal. No disc herniation or spinal stenosis. We looked at the images together today and confirmed. Again, chronic pain is myofascial in nature. He is making great strides in terms of guided PT and exercises. Slow progression with just minimal weights. Advised importance of stretching and posture. Objectively the MRI thoracic or cervical do not show indication for intervention/injection/surgery. 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 He is concerned about prolonged sitting because he still gets pain when he sits more than 30 minutes at a time. Assessment and plan discussed with patient, and patient was agreeable. All questions were answered thoroughly. Follow up after MRI. Dina Tse MD, POONAM Board Certified, [place] Board of Physical Medicine and Rehabilitation (ABPMR) Board Certified, [place] Board of Electrodiagnostic Medicine (ABEM) Coding Level of Care Code Est Pt Level 4 (44726) Diagnoses Upper back pain M54.9 Myofascial pain M79.18 Chronic right-sided thoracic back pain M54.6; G89.29
[2024-08-27 11:48] VITALS: BMI 24.4
== END 2024-08-27 12:09 | disposition home or self-care (01) ==
LOC: HO.HOS 11:41
PROVIDERS: PCP Internal Medicine; Visit Provider Physical Medicine & Rehabilitation
DX: M54.9 Dorsalgia, unspecified (principal); M79.18 Myalgia, other site; M54.6 Pain in thoracic spine; G89.29 Other chronic pain
CPT/HCPCS: 99214

== ENCOUNTER → 2024-08-27 11:41 | Outpatient (BNVA) | payer BC, SELFPAY | PROVIDERS: PCP Internal Medicine; Visit Provider Physical Medicine & Rehabilitation ==

== ENCOUNTER 2024-09-17 10:33 | Outpatient (AMB) | payer BC, SELFPAY ==
--- NOTE | 2024-09-17 10:41 | A.OFFPC_ITS ---
Vital Signs 09/17/24 10:47 Height 6 ft 2 in Weight 197 lb BMI 25.3 BP 110/66 Blood Pressure Location Rt brachial Position Sitting Pulse 107 H Pulse Source Pulse Oximeter Pulse Oximetry (%) 98 Oxygen Delivery Method Room Air Intake Visit Reasons: PE Allergies amoxicillin [From Augmentin] Allergy (Unknown, Verified 08/27/24 11:49) Unknown clavulanic acid [From Augmentin] Allergy (Unknown, Verified 08/27/24 11:49) Unknown Tobacco use date assessed: 09/17/24 Dental Screening Dental Screen Date: 04/06/24 HPI HPI Comments History of Present Illness Details The patient is a 24 year old male with a past medical history of back pain presenting for physical exam Chronic pain: Saw physiatry. Had thoracic and cervical MRI. Myofascial. upcomoing stem cell appt. Seeing physiatry again in 3 months. Slow steady improvement with PT. 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 Started to experience thoracic back pain. Finished school, started working-9 hours a day. Using sit stand ergonomic chair. Went to chiro, PT, saw orthopedic surgery. Orthopedic surgery-[facility] [place]. Had xrays. Sent for MRI. Referred to pain management. Started trigger point injections, acupuncture. STD from work ~3 months. Went back to work. Still having pain. Repeated PT. Tried second chiropractor. Referred to physiatry/pain management-this was in [facility]. Placed on muscle relaxants. Slight relief with muscle relaxants. Discussed with him there was some improvement with muscle relaxants, didnt hear further. Nayana Appiah, specialty PT in [facility] on one hour session. Last six weeks. She referred him to stem cell unit. He continues to have difficulty sitting or standing for long periods of time. It is hard for him to get through his days of work due to pain levels. Stem cell appointment ROS see HPI PHYSICAL EXAM: GENERAL: Alert and oriented x 3. NAD EYES: EOMI. Anicteric. HENT: Moist mucous membranes. No scleral icterus. No cervical lymphadenopathy. LUNGS: Clear to auscultation bilaterally. CARDIOVASCULAR: Regular rate and rhythm. No murmur. No JVD. ABDOMEN: Soft, non-tender +bs : Normal penis and testes EXTREMITIES: No edema. Non-tender. SKIN: No rashes or lesions. Warm. NEUROLOGIC: No focal neurological deficits. CN II-XII grossly intact PSYCHIATRIC: Cooperative. 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 1. Little interest or pleasure in doing things: nearly every day 2. Feeling down, depressed, or hopeless: nearly every day 3. Trouble falling or staying asleep, or sleeping too much: several days 4. Feeling tired or having little energy: not at all 5. Poor appetite or overeating: not at all 6. Feeling bad about yourself - or that you are a failure or have let yourself or your family down: not at all 7. Trouble concentrating on things, such as reading the newspaper or watching television: nearly every day 8. Moving or speaking so slowly that other people could have noticed. Or the opposite - being so fidgety or restless that you have been moving around a lot more than usual: not at all 9. Thoughts that you would be better off or of hurting yourself in some way: not at all Total score: 10 Depression Screening Interpretation: Positive Depression Screening Follow-up: New Medication prescribed Depression Screening Done: Yes 59312 - PHQ-9 Billing: Yes Source: Developed by Drs. Ambrocio Fuentes, Hetal Lang, Steve Lobato and colleagues, with an educational johanny from [employer]. Thrive Questionnaire Date Thrive assessed: 09/14/24 I am a: Patient What is your living situation today?: I have a steady place to live Within the past 12 months, did the food you bought not last and you didn't have the money to get more?: Never true Within the past 12 months, did you worry whether your food would run out before you got money to buy more?: Never true Do you have trouble paying for medicines?: No Do you have trouble getting transportation to medical appointments?: No Do you have trouble paying your heating and electricity bill?: No Do you have trouble taking care of your child, family member or friend?: No Do you have trouble with day-to-day activities such as bathing, preparing meals, shopping, managing finances, etc.?: No Are you currently unemployed and looking for a job?: No Are you interested in more education?: No Please select the resources that you would like help with: None Currently or been in a relationship where the following occur: No concerns reported THRIVE Score: 0 AUDIT C Alcohol Use Questionnaire (AUDIT-C) 1. How often do you have a drink containing alcohol?: Never 3. How often do you have six or more drinks on one occasion?: Never Total Score: 0 AVANI-7 AMB Questionnaire AVANI-7 Date AVANI - 7 assessed: 04/07/24 Feeling nervous, anxious, or on edge: 1 = Several days Not being able to stop or control worryin = Several days Worrying too much about different things: 1 = Several days Trouble relaxin = Several days Being so restless that it is hard to sit still: 1 = Several days Becoming easily annoyed or irritable: 1 = Several days Feeling afraid as if something awful might happen: 0 = Not at all Total AVANI-7 score (0-4 normal; 5-9 mild; 10-14 moderate; 15-21 severe): 6 Source: Developed by Drs. Ambrocio Fuentes, Hetal Lang, Steve Lobato and colleagues, with an educational johanny from [employer]. Physical exam (Primary Care) Vital Signs: Last Vital Signs Pulse 107 H 09/17/24 10:47 BP 110/66 09/17/24 10:47 Pulse Ox 98 09/17/24 10:47 Oxygen Delivery Method Room Air 09/17/24 10:47 BMI result Body Mass Index 25.3 Tobacco/Smoking Status: Tobacco use Status Tobacco use date assessed 09/17/24 09/17/24 10:47 Patient Tobacco Use Status Never used Tobacco 09/17/24 10:47 e-Cigarette/Vaping Use Never Used 09/17/24 10:47 PHQ-9: PHQ-9 Score PHQ-9: Total score 10 09/17/24 10:49 Depression Screening Interpretation: Positive Depression Screening Follow-up: New Medication prescribed Thrive Assessment: Date of Thrive Assessment Date Thrive assessed 09/14/24 09/17/24 10:47 Currently or been in a relationship where the following occur: No concerns reported Coding Level of Care Code Est Pt Prev Care 18-39y(13073) Diagnoses Physical exam Z00.00 Myofascial pain M79.18 Additional Codes PHQ-9 - 51221 - PHQ-9 Billing: Yes ([id number]) Assessment & Plan Assessment & Plan (1) Physical exam: Code(s): Z00.00 - Encounter for general adult medical examination without abnormal findings Category: Medical Plan: Preventive measures discussed Labs utd-repeat abnormals Jury letter provided (2) Myofascial pain: Code(s): M79.18 - Myalgia, other site Category: Medical Plan: Jury letter provide Trial duloxetine Baclofen PRN Orders: Orders Complete Blood Count Auto Diff Today R73.09 - Other abnormal glucose, R79.89 - Other specified abnormal findings of blood chemistry, Z13.0 - Encounter for screening for diseases of the blood and blood-forming organs and certain disorders involving the immune mechanism Pathologist Review - CBC Today R73.09 - Other abnormal glucose, R79.89 - Other specified abnormal findings of blood chemistry, Z13.0 - Encounter for screening for diseases of the blood and blood-forming organs and certain disorders involving the immune mechanism Hemoglobin A1c Today R73.09 - Other abnormal glucose, R79.89 - Other specified abnormal findings of blood chemistry, Z13.0 - Encounter for screening for diseases of the blood and blood-forming organs and certain disorders involving the immune mechanism Medications: New duloxetine then increase to 60mg cap oral daily 30 mg PO DAILY 7 caps 0RF baclofen 10 mg PO TID PRN 90 tabs 3RF muscle spasm duloxetine 60 mg PO DAILY 90 caps 3RF
[2024-09-17 10:47] VITALS: BP 110/66; PULSE 107; O2SAT 98; BMI 25.3
== END 2024-09-17 11:17 | disposition home or self-care (01) ==
PROVIDERS: PCP Internal Medicine; Visit Provider Internal Medicine
DX: Z00.00 Encounter for general adult medical examination without abnormal findings (principal); M79.18 Myalgia, other site

== ENCOUNTER → 2024-09-17 10:33 | Outpatient (BNVA) | payer BC, SELFPAY | PROVIDERS: PCP Internal Medicine; Visit Provider Internal Medicine | DX: Z00.00 Encounter for general adult medical examination without abnormal findings (principal); M79.18 Myalgia, other site | CPT/HCPCS: 96127 ==

== ENCOUNTER 2024-11-01 10:18 | Outpatient (AMB) | payer BC, SELFPAY ==
--- NOTE | 2024-11-01 10:29 | A.OFFPC_ITS ---
Vital Signs 11/01/24 10:37 Height 6 ft 2 in Weight 195 lb BMI 25.0 BP 118/78 Blood Pressure Location Lt brachial Position Sitting Pulse 95 Pulse Source Pulse Oximeter Pulse Oximetry (%) 97 Oxygen Delivery Method Room Air Intake Visit Reasons: follow up back pain Intake Note: Follow up back pain. Was having side effects from Cymbalta: anxiety, depression, dizziness. Cardroom Supervisor Required: No Allergies duloxetine [From Cymbalta] Allergy (Severe, Verified 11/01/24 10:34) Depression amoxicillin [From Augmentin] Allergy (Unknown, Verified 11/01/24 10:30) Unknown clavulanic acid [From Augmentin] Allergy (Unknown, Verified 11/01/24 10:30) Unknown Medication List - Last Reconciled 11/01/24 by Cate Mullins MD biotin 5,000 mcg sublingual .once weekly [calcium ,] Tobacco use date assessed: 09/17/24 Dental Screening Dental Screen Date: 04/06/24 HPI HPI Comments History of Present Illness Details The patient is a 24 year old male with a past medical history of back pain, lyme disease presenting for physical exam Chronic pain: Saw physiatry. Had thoracic and cervical MRI. Myofascial. Upcoming stem cell appt-Nov 08. Went to homeopathic doctor-started on biotin and calcium. Slow steady improvement with PT. 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. Started to experience thoracic back pain. Finished school, started working-9 hours a day. Using sit stand ergonomic chair. Went to chiro, PT, saw orthopedic surgery. Orthopedic surgery-[facility]. Had xrays. Sent for MRI. Referred to pain management. Started trigger point injections, acupuncture. STD from work ~3 months. Went back to work. Still having pain. Repeated PT. Tried second chiropractor. Referred to physiatry/pain management-this was in [facility]. Placed on muscle relaxants. Slight relief with muscle relaxants. Discussed with him there was some improvement with muscle relaxants, didnt hear further. Nayana Appiah, specialty PT in [place]-one on one hour session. Last six weeks. She referred him to stem cell unit. He continues to have difficulty sitting or standing for long periods of time. It is hard for him to get through his days of work due to pain levels. Getting stronger and more flexible but still having daily pain Tried duloxetine -had a bad reaction. [place] absolutely awful, couldnt function. Added to allergy list Seeing a therapist once weekly ROS see HPI PHYSICAL EXAM: GENERAL: Alert and oriented x 3. NAD EYES: EOMI. Anicteric. HENT: Moist mucous membranes. No scleral icterus. No cervical lymphadenopathy. LUNGS: Clear to auscultation bilaterally. CARDIOVASCULAR: Regular rate and rhythm. No murmur. No JVD. ABDOMEN: Soft, non-tender +bs : Normal penis and testes EXTREMITIES: No edema. Non-tender. SKIN: No rashes or lesions. Warm. NEUROLOGIC: No focal neurological deficits. CN II-XII grossly intact PSYCHIATRIC: Cooperative. 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 1. Little interest or pleasure in doing things: several days 2. Feeling down, depressed, or hopeless: several days 3. Trouble falling or staying asleep, or sleeping too much: not at all 4. Feeling tired or having little energy: several days 5. Poor appetite or overeating: not at all 6. Feeling bad about yourself - or that you are a failure or have let yourself or your family down: several days 7. Trouble concentrating on things, such as reading the newspaper or watching television: nearly every day 8. Moving or speaking so slowly that other people could have noticed. Or the opposite - being so fidgety or restless that you have been moving around a lot more than usual: not at all 9. Thoughts that you would be better off or of hurting yourself in some way: not at all Total score: 7 Depression Screening Interpretation: Positive Depression Screening Follow-up: Community Mental Health Worker F/U Depression Screening Done: Yes 49376 - PHQ-9 Billing: Yes Source: Developed by Drs. Ambrocio Fuentes, Hetal Lang, Steve Lobato and colleagues, with an educational johanny from [employer]. Thrive Questionnaire Date Thrive assessed: 10/31/24 I am a: Patient What is your living situation today?: I have a steady place to live Within the past 12 months, did the food you bought not last and you didn't have the money to get more?: Never true Within the past 12 months, did you worry whether your food would run out before you got money to buy more?: Never true Do you have trouble paying for medicines?: No Do you have trouble getting transportation to medical appointments?: No Do you have trouble paying your heating and electricity bill?: No Do you have trouble taking care of your child, family member or friend?: No Do you have trouble with day-to-day activities such as bathing, preparing meals, shopping, managing finances, etc.?: No Are you currently unemployed and looking for a job?: No Are you interested in more education?: No Please select the resources that you would like help with: None Currently or been in a relationship where the following occur: No concerns reported THRIVE Score: 0 AUDIT C Alcohol Use Questionnaire (AUDIT-C) 1. How often do you have a drink containing alcohol?: Never 3. How often do you have six or more drinks on one occasion?: Never Total Score: 0 AVANI-7 AMB Questionnaire AVANI-7 Date AVANI - 7 assessed: 04/07/24 Feeling nervous, anxious, or on edge: 1 = Several days Not being able to stop or control worryin = Several days Worrying too much about different things: 1 = Several days Trouble relaxin = Several days Being so restless that it is hard to sit still: 1 = Several days Becoming easily annoyed or irritable: 1 = Several days Feeling afraid as if something awful might happen: 0 = Not at all Total AVANI-7 score (0-4 normal; 5-9 mild; 10-14 moderate; 15-21 severe): 6 Source: Developed by Drs. Ambrocio Fuentes, Hetal Lang, Steve Lobato and colleagues, with an educational johanny from [employer]. Physical exam (Primary Care) Vital Signs: Last Vital Signs Pulse 95 11/01/24 10:37 BP 118/78 11/01/24 10:37 Pulse Ox 97 11/01/24 10:37 Oxygen Delivery Method Room Air 11/01/24 10:37 BMI result Body Mass Index 25.0 Tobacco/Smoking Status: Tobacco use Status Tobacco use date assessed 09/17/24 11/01/24 10:39 Patient Tobacco Use Status Never used Tobacco 11/01/24 10:39 e-Cigarette/Vaping Use Never Used 11/01/24 10:39 PHQ-9: PHQ-9 Score PHQ-9: Total score 7 11/01/24 10:39 Depression Screening Interpretation: Positive Depression Screening Follow-up: Community Mental Health Worker F/U Thrive Assessment: Date of Thrive Assessment Date Thrive assessed 10/31/24 11/01/24 10:39 Currently or been in a relationship where the following occur: No concerns reported Coding Level of Care Code Est Pt Level 3 (29872) Diagnoses Chronic back pain, unspecified back location, unspecified back pain laterality M54.9; G89.29 Back pain location: back pain in unspecified location Back pain laterality: unspecified Additional Codes PHQ-9 - 29868 - PHQ-9 Billing: Yes ([id number]) Assessment & Plan Assessment & Plan (1) Chronic back pain: Code(s): M54.9 - Dorsalgia, unspecified; G89.29 - Other chronic pain Category: Medical Qualifiers: Back pain location: back pain in unspecified location Back pain later ality: unspecified Qualified Code(s): M54.9 - Dorsalgia, unspecified; G89.29 - Other chronic pain Plan: Chronic back pain Improving slowly. Not quite able to return to work at this time. Hoping stem cell treatment and started homeopathic therapies will improve symptoms to the point he can tolerate returning.
[2024-11-01 10:37] VITALS: BP 118/78; PULSE 95; O2SAT 97; BMI 25.0
== END 2024-11-01 11:05 | disposition home or self-care (01) ==
PROVIDERS: PCP Internal Medicine; Visit Provider Internal Medicine
DX: M54.9 Dorsalgia, unspecified (principal); G89.29 Other chronic pain

== ENCOUNTER → 2024-11-01 10:18 | Outpatient (BNVA) | payer BC, SELFPAY | PROVIDERS: PCP Internal Medicine; Visit Provider Internal Medicine | DX: M54.9 Dorsalgia, unspecified (principal); G89.29 Other chronic pain | CPT/HCPCS: 96127 ==

== ENCOUNTER 2025-07-11 09:19 | Outpatient (AMB) | payer BC, SELFPAY ==
--- NOTE | 2025-07-11 09:23 | A.OFFPC_ITS ---
Vital Signs 07/11/25 09:26 Height 6 ft 2 in Weight 198 lb 6 oz BMI 25.5 BP 124/70 Blood Pressure Location Rt brachial Position Sitting Respiration 14 Pulse 75 Pulse Source Pulse Oximeter Temp 98.3 F Temp Source Oral Pulse Oximetry (%) 98 Oxygen Delivery Method Room Air Intake Visit Reasons: Lyme disease Intake Note: Referral to infectious disease doctor. Turbine Attendant Required: No Allergies duloxetine (From Cymbalta) Allergy (Severe, Verified 07/11/25 09:25) Depression amoxicillin (From Augmentin) Allergy (Unknown, Verified 07/11/25 09:25) Unknown clavulanic acid (From Augmentin) Allergy (Unknown, Verified 07/11/25 09:25) Unknown Tobacco use date assessed: 07/11/25 Dental Screening Dental Screen Date: 07/11/25 Did you have a dental visit in the last 12 months?: No Did you have a dental problem in the last 6 months where you did not have access to dental care?: No Was dental information given to patient?: Patient has dentist (appt end of month) HPI HPI Comments History of Present Illness Details The patient is a 24 year old male with a past medical history of back pain, lyme disease presenting for physical exam Chronic pain: Saw physiatry. Had thoracic and cervical MRI. Myofascial. +Lyme IgM and IgG. Upcoming appt for consideration of prp but insurance does not cover. Interested in Lyme specialist referral. He continues to have chronic back pain despite meds, trigger point injections, acupuncture, chiro and PT. 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 Started to experience thoracic back pain. Finished school, started working-9 hours a day. Using sit stand ergonomic chair. Went to chiro, PT, saw orthopedic surgery. Orthopedic surgery-[facility] [place]. Had xrays. Sent for MRI. Referred to pain management. Started trigger point injections, acupuncture. STD from work ~3 months. Went back to work. Still having pain. Repeated PT. Tried second chiropractor. Referred to physiatry/pain management-this was in [facility]. Placed on muscle relaxants. Slight relief with muscle relaxants. Discussed with him there was some improvement with muscle relaxants, didnt hear further. Nayana Appiah, specialty PT in [place]-one on one hour session. Last six weeks. She referred him to stem cell unit. He continues to have difficulty sitting or standing for long periods of time. It is hard for him to get through his days of work due to pain levels. Tried duloxetine -had a bad reaction. [place] absolutely awful, couldnt function. Added to allergy list Seeing a therapist once weekly ROS see HPI PHYSICAL EXAM: GENERAL: Alert and oriented x 3. NAD EYES: EOMI. Anicteric. HENT: Moist mucous membranes. No scleral icterus. No cervical lymphadenopathy. LUNGS: Clear to auscultation bilaterally. CARDIOVASCULAR: Regular rate and rhythm. No murmur. No JVD. ABDOMEN: Soft, non-tender +bs : Normal penis and testes EXTREMITIES: No edema. Non-tender. SKIN: No rashes or lesions. Warm. NEUROLOGIC: No focal neurological deficits. CN II-XII grossly intact PSYCHIATRIC: Cooperative. 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: 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) Cognitive needs: No Hearing needs: No Vision needs: No Questionnaire Thrive Questionnaire Date Thrive assessed: 10/31/24 I am a: Patient What is your living situation today?: I have a steady place to live Within the past 12 months, did the food you bought not last and you didn't have the money to get more?: Never true Within the past 12 months, did you worry whether your food would run out before you got money to buy more?: Never true Do you have trouble paying for medicines?: No Do you have trouble getting transportation to medical appointments?: No Do you have trouble paying your heating and electricity bill?: No Do you have trouble taking care of your child, family member or friend?: No Do you have trouble with day-to-day activities such as bathing, preparing meals, shopping, managing finances, etc.?: No Are you currently unemployed and looking for a job?: No Are you interested in more education?: No Please select the resources that you would like help with: None Currently or been in a relationship where the following occur: No concerns reported THRIVE Score: 0 AUDIT C Alcohol Use Questionnaire (AUDIT-C) 2. How many drinks containing alcohol do you have on a typical day when you are drinking?: 1 or 2 Total Score: 0 AVANI-7 AMB Questionnaire AVANI-7 Date AVANI - 7 assessed: 04/07/24 Source: Developed by Drs. Ambrocio Fuentes, Hetal Lang, Steve Lobato and colleagues, with an educational johanny from [employer]. Physical exam (Primary Care) Vital Signs: Last Vital Signs Temp 98.3 F 07/11/25 09:26 Pulse 75 07/11/25 09:26 Resp 14 07/11/25 09:26 BP 124/70 07/11/25 09:26 Pulse Ox 98 07/11/25 09:26 Oxygen Delivery Method Room Air 07/11/25 09:26 BMI result Body Mass Index 25.5 Tobacco/Smoking Status: Tobacco use Status Tobacco use date assessed 07/11/25 07/11/25 09:29 Patient Tobacco Use Status Never used Tobacco 07/11/25 09:29 e-Cigarette/Vaping Use Never Used 07/11/25 09:29 Thrive Assessment: Date of Thrive Assessment Date Thrive assessed 10/31/24 07/11/25 09:25 Currently or been in a relationship where the following occur: No concerns reported Coding Level of Care Code Est Pt Level 3 (06265) 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 Chronic back pain, unspecified back location, unspecified back pain laterality M54.9; G89.29 Back pain location: back pain in unspecified location Back pain laterality: unspecified Myofascial pain M79.18 Assessment & Plan Assessment & Plan (1) Post-Lyme disease syndrome: Code(s): 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 Orders: Referrals Integrative Medicine Referral B94.8 - Sequelae of other specified infectious and parasitic diseases, G89.29 - Other chronic pain, M54.9 - Dorsalgia, unspecified, M79.18 - Myalgia, other site
[2025-07-11 09:26] VITALS: BP 124/70; PULSE 75; RESP 14; TEMP 36.8; O2SAT 98; BMI 25.5
== END 2025-07-11 10:53 | disposition home or self-care (01) ==
LOC: HO.HMCFM 09:19
PROVIDERS: PCP Internal Medicine; Visit Provider Internal Medicine
DX: B94.8 Sequelae of other specified infectious and parasitic diseases (principal); M54.9 Dorsalgia, unspecified; G89.29 Other chronic pain; M79.18 Myalgia, other site